=== PATIENT | female | born 1975 ===

== ENCOUNTER 2019-06-16 15:09 | Emergency (ER) | payer MEDICARE ==
--- NOTE | 2019-06-16 15:44 | Event Note ---
ED Screening Note Date of service: 06/16/19 Time: 15:40 ED Screening Note: 43 y/o female comes in Chest pain with SOB. pain radiating to her neck. PMH HTN not taking. DM not taking her medication. LMP 06/12/19. This initial assessment/diagnostic orders/clinical plan/treatment(s) is/are subject to change based on patients health status, clinical progression and re- assessment by fellow clinical providers in the ED. Further treatment and workup at subsequent clinical providers discretion. Patient/guardian urged not to elope from the ED as their condition may be serious if not clinically assessed and managed. Initial orders include:
[2019-06-16] MEDS ORDERED: NACL 0.9% 1000 ML 1,000 ML IV ONE (15:45)
[2019-06-16 16:15] LABS: Basophils # (Auto) 0.1 K/mm3 (0.0-0.1); Basophils % (Auto) 0.9 % (0.0-1.8); Eosinophils # (Auto) 0.1 K/mm3 (0.0-0.4); Eosinophils % (Auto) 1.6 % (0.0-4.3); Hematocrit 42.6 % (30.3-42.9); Hemoglobin 14.7 gm/dl (10.1-14.3); Lymphocytes # (Auto) 2.6 K/mm3 (1.2-5.4); Lymphocytes % (Auto) 45.3 % (13.4-35.0); Mean Corpuscular HGB Conc 35 % (30-34); Mean Corpuscular Volume 88 fl (79-97); Monocytes # (Auto) 0.4 K/mm3 (0.0-0.8); Monocytes % (Auto) 6.2 % (0.0-7.3); Platelet Count 213 K/mm3 (140-440); Red Blood Count 4.82 M/mm3 (3.65-5.03); Red Cell Distribution Width 15.4 % (13.2-15.2)
[2019-06-16 16:25] LABS: INR 1.02 (0.87-1.13); Partial Thromboplastin Time 25.8 Sec. (24.2-36.6)
--- NOTE | 2019-06-16 16:37 | Emergency Department Report ---
ED Chest Pain HPI - General Chief Complaint: Chest Pain Stated Complaint: CHEST PAIN Time Seen by Provider: 06/16/19 16:25 Source: patient Mode of arrival: Ambulatory Limitations: No Limitations - History of Present Illness Initial Comments: Patient is a 43-year-old female that presents to the emergency room with complaints of chest pain. Patient states chest pain started approximately one hour ago. Patient states the chest pain is radiating to her neck and back. Patient states she is noncompliant with all of her diabetes and high blood pressure medications. Patient states she has a history of hypertension, diabetes, high cholesterol and CAD and AL. Patient states her AL was 3 years ago. Patient states she doesn't have any stents. Patient states her chest pain is a 10 out of 10. Patient states her pain is worse exertion and better with rest. Patient denies shortness of breath. States she is allergic to morphine but is able to have Dilaudid. MD Complaint: chest pain -: Sudden Onset: during rest Pain Location: substernal, left chest Pain Radiation: back, neck Severity: severe Severity scale (0 -10): 10 Quality: sharp Consistency: constant Improves With: rest Worsens With: exertion re: denies: nausea, vomting, diaphoresis, dyspnea, sense of impending doom Other Symptoms: leg swelling. denies: cough, fever, syncope, rash, acid taste in mouth, palpitations, burping Treatments Prior to Arrival: none Aspirin use within the Past 7 Days: (0) No - Related Data On Oral Contraceptives: No Previous Rx's Medication Instructions Recorded Last Taken Type AtorvaSTATin [Lipitor] 40 mg PO QHS #30 tablet 03/08/18 Unknown Rx Diabetic Supplies,Miscell [Enlite 1 each MC BID #1 miscell 03/08/18 Unknown Rx Serter] HYDROcodone/APAP 10-325 [[place] 1 each PO Q6HR PRN #10 tablet 03/08/18 Unknown Rx 10-325 mg TAB] Ibuprofen 600 mg PO QID PRN #20 tablet 03/08/18 Unknown Rx Insulin NPH/Regular [NovoLIN 70/30] 10 unit SUB-Q BID #1 vial 03/08/18 Unknown Rx Lisinopril [Zestril TAB] 20 mg PO QDAY 30 Days tablet 03/08/18 Unknown Rx amLODIPine [Norvasc] 10 mg PO DAILY 30 Days tab 03/08/18 Unknown Rx hydroCHLOROthiazide [HCTZ] 25 mg PO QDAY #30 tablet 03/08/18 Unknown Rx Allergies Allergy/AdvReac Type Severity Reaction Status Date / Time erythromycin base Allergy Angioedema Verified 11/27/15 03:01 morphine Allergy Angioedema Verified 11/27/15 03:01 Heart Score - HEART Score History: Moderately suspicious EKG: Non-specific Age: < 45 Risk factors: > 3 risk factors or hx of atherosclerotic disease Troponin: < normal limit HEART Score: 4 ED Review of Systems ROS: Stated complaint: CHEST PAIN Other details as noted in HPI Constitutional: denies: chills, fever Eyes: denies: eye pain, eye discharge, vision change ENT: denies: ear pain, throat pain Respiratory: denies: cough, shortness of breath, wheezing Cardiovascular: chest pain. denies: palpitations Endocrine: no symptoms reported Gastrointestinal: denies: abdominal pain, nausea, diarrhea Genitourinary: denies: urgency, dysuria, discharge Musculoskeletal: denies: back pain, joint swelling, arthralgia Skin: denies: rash, lesions Neurological: denies: headache, weakness, paresthesias Psychiatric: denies: anxiety, depression Hematological/Lymphatic: denies: easy bleeding, easy bruising ED Past Medical Hx - Past Medical History Previous Medical History?: Yes Hx Hypertension: Yes Hx Heart Attack/AMI: Yes Hx Diabetes: Yes (NIDDM) - Surgical History Past Surgical History?: Yes Hx Cholecystectomy: Yes (2004) Additional Surgical History: csection 2003, - Family History Family history: no significant - Social History Smoking Status: Current Every Day Smoker Substance Use Type: Alcohol, Marijuana - Medications Home Medications: Home Medications Medication Instructions Recorded Confirmed Last Taken Type AtorvaSTATin [Lipitor] 40 mg PO QHS #30 tablet 03/08/18 Unknown Rx Diabetic Supplies,Miscell [Enlite 1 each MC BID #1 miscell 03/08/18 Unknown Rx Serter] HYDROcodone/APAP 10-325 [[place] 1 each PO Q6HR PRN #10 tablet 03/08/18 Unknown Rx 10-325 mg TAB] Ibuprofen 600 mg PO QID PRN #20 tablet 03/08/18 Unknown Rx Insulin NPH/Regular [NovoLIN 70/30] 10 unit SUB-Q BID #1 vial 03/08/18 Unknown Rx Lisinopril [Zestril TAB] 20 mg PO QDAY 30 Days tablet 03/08/18 Unknown Rx amLODIPine [Norvasc] 10 mg PO DAILY 30 Days tab 03/08/18 Unknown Rx hydroCHLOROthiazide [HCTZ] 25 mg PO QDAY #30 tablet 03/08/18 Unknown Rx ED Physical Exam - General Limitations: No Limitations General appearance: alert, in no apparent distress - Head Head exam: Present: atraumatic, normocephalic - Eye Eye exam: Present: normal appearance - ENT ENT exam: Present: mucous membranes moist - Neck Neck exam: Present: normal inspection - Respiratory Respiratory exam: Present: normal lung sounds bilaterally. Absent: respiratory distress - Cardiovascular Cardiovascular Exam: Present: regular rate, normal rhythm. Absent: systolic murmur, diastolic murmur, rubs, gallop - GI/Abdominal GI/Abdominal exam: Present: soft, normal bowel sounds - Extremities Exam Extremities exam: Present: normal inspection - Back Exam Back exam: Present: normal inspection - Neurological Exam Neurological exam: Present: alert, oriented X3 - Psychiatric Psychiatric exam: Present: normal affect, normal mood - Skin Skin exam: Present: warm, dry, intact, normal color. Absent: rash ED Course Vital Signs 06/16/19 06/16/19 06/16/19 15:12 17:50 18:02 Temperature 97.7 F Pulse Rate 99 H 86 82 Respiratory 24 18 Rate Blood Pressure 180/122 Blood Pressure 220/139 153/86 [Right] O2 Sat by Pulse 91 99 Oximetry 06/16/19 06/16/19 06/16/19 19:30 20:42 21:00 Temperature Pulse Rate 72 82 73 Respiratory 15 16 21 Rate Blood Pressure 158/89 145/78 163/88 Blood Pressure [Right] O2 Sat by Pulse 96 96 95 Oximetry - Reevaluation(s) Reevaluation #1: Patient unable to have CTA due to size. The patient will require a CTA of the chest due to her symptoms of chest pain radiating to the back. I discussed transfer with the patient and patient agrees with plan of care. I discussed all results with patient 06/16/19 18:47 Reevaluation #2: I discussed transfer with patient. Patient agrees with transfer. Patient will be transferred to [place] via EMS. Patient will be given another 2 mg of Dilaudid for her chest pain. 06/16/19 20:41 - Consultations Consultation #1: [place] transfer center consultation for possible transfer due to the patient's size 06/16/19 19:59 Patient has been accepted to [facility] for ER to ER transfer. Patient has been accepted by Dr. Dacosta 06/16/19 20:38 I discussed the case again with Dr. Parra, ER physician. Dr. Parra has accepted the patient be transferred ER to ER 06/16/19 21:04 AIME score - Aime Score Age > 65: (0) No Aspirin use within the Past 7 Days: (0) No 3 or more CAD Risk Factors: (1) Yes 2 or more Angina events in past 24 hrs: (0) No Known CAD with more than 50% Stenosis: (0) No Elevated Cardiac Markers: (0) No ST Deviation Greater than 0.5mm: (0) No AIME Score: 1 ED Medical Decision Making - Lab Data Result diagrams: 06/16/19 15:54 06/16/19 15:54 - EKG Data -: EKG Interpreted by [facility] EKG shows normal: sinus rhythm, axis, intervals, QRS complexes, ST-T waves Rate: normal - Radiology Data Radiology results: report reviewed, image reviewed CHEST 2 VIEWS INDICATION: Chest Pain. COMPARISON: 03/07/2018 FINDINGS: Support devices: None. Heart: Within normal limits. Lungs: No acute air space or interstitial disease. Pleura: No significant pleural effusion. No pneumothorax. Additional findings: None. IMPRESSION: 1. No acute findings. - Medical Decision Making Patient is a 43-year-old female that presents emergency room with chest pain. Patient stated her chest pain was starting in her chest and radiated to her back and neck. Patient also found to have extremely elevated blood pressure consistent with hypertensive urgency. Patient is noncompliant with her medications for diabetes and blood pressure and hyperlipidemia. Patient responded well to pain medications and blood pressure medications. Patient requires a CTA due to the fact the patient's chest pain is radiating to her back and a significantly elevated blood pressure. Patient is too large for our CT scanner. Patient transferred to a bariatric facility for further evaluation and management of the patient. Patient transferred to a facility that has a CAT scanner that can handle the patient's weight. Patient transferred to [facility]. Patient was accepted by the ER physician and the hospitalist. Patient's labs unremarkable. Patient's chest x-ray normal and negative. - Differential Diagnosis chest pain. ACS. PE. Dissection. non-Compliance. Hypertension. Critical Care Time: Yes Critical care attestation.: If time is entered above; I have spent that time in minutes in the direct care of this critically ill patient, excluding procedure time. Critical Care Time: 35 minutes ED Disposition Clinical Impression: Hypertensive urgency, Noncompliance Chest pain Qualifiers: Chest pain type: unspecified Qualified Code(s): R07.9 - Chest pain, unspecified Obesity Qualifiers: Obesity type: unspecified obesity type Obesity classification: adult class 3 (BMI >= 40) Serious obesity comorbidity presence: with serious comorbidity Body mass index: BMI 70 or greater Qualified Code(s): E66.01 - Morbid (severe) obesity due to excess calories Disposition: DC/TX-70 ANOTHER TYPE HLTHCARE Is pt being admited?: No Does the pt Need Aspirin: No Condition: Critical Instructions: Chest Pain (ED) Referrals: ZIA LINDSEY MD [Primary Care Provider] - 3-5 Days Time of Disposition: 21:15
[2019-06-16 16:38] LABS: Alanine Aminotransferase 12 units/L (7-56); Albumin 3.6 g/dL (3.9-5); BUN/Creatinine Ratio 10; Blood Urea Nitrogen 7 mg/dL (7-17); Calcium 8.7 mg/dL (8.4-10.2); Hemolysis Index 5
--- NOTE | 2019-06-16 17:29 | XRay Report ---
CHEST 2 VIEWS INDICATION: Chest Pain. COMPARISON: 03/07/2018 FINDINGS: Support devices: None. Heart: Within normal limits. Lungs: No acute air space or interstitial disease. Pleura: No significant pleural effusion. No pneumothorax. Additional findings: None. IMPRESSION: 1. No acute findings. Signer Name: Poli Mckeon MD Signed: 06/16/2019 5:24 PM Workstation Name: [id number] ([id number]
[2019-06-16] MEDS ORDERED: LOPRESSOR IV ONE (17:31)
[2019-06-16] MEDS ORDERED: DILAUDID IV ONE ×2 (17:33→20:42)
[2019-06-16 21:34] VITALS: BP 163/88
== END 2019-06-16 22:44 | disposition other institution (70) ==
LOC: ED 15:09
DX: I16.0 Hypertensive urgency (principal); E11.9 Type 2 diabetes mellitus without complications; I10 Essential (primary) hypertension; E78.00 Pure hypercholesterolemia, unspecified; I25.2 Old myocardial infarction; F17.200 Nicotine dependence, unspecified, uncomplicated; F12.10 Cannabis abuse, uncomplicated; E66.9 Obesity, unspecified; Z68.45 Body mass index [BMI] 70 or greater, adult; Z88.5 Allergy status to narcotic agent; Z79.899 Other long term (current) drug therapy; Z79.4 Long term (current) use of insulin; Z88.1 Allergy status to other antibiotic agents; Z90.49 Acquired absence of other specified parts of digestive tract
CPT/HCPCS: 36415; 71046; 80053; 82962; 83690; 83880; 84484; 84703; 85025; 85610; 85730; 93005; 93010; 96374; 96375; 96376; 99291; J1170; J7030; 96361